=== PATIENT | male | born 1965 | race Caucasian/White ===

== ENCOUNTER → 2017-08-12 | Outpatient (CLI) | payer OTHER ==
--- NOTE | ~2017-08-12 | P ---
[facility] [place] [address] PROCEDURE REPORT Name: SILVERYESSY Tapan Room #: [facility] [id number] Admission: 08/12/17 Attend Phys: Antonio Prieto Discharge: Date of : 67 Report #: [id number] THIS REPORT FOR: //name// CC: Antonio Otero [facility] physician/PCP DATE OF SERVICE: 08/12/2017 PROCEDURE PERFORMED: Colonoscopy with biopsies. HISTORY OF PRESENT ILLNESS: The patient is a 52-year-old male who presents today for a routine screening colonoscopy, has never had a colonoscopy in the past. He has no symptoms, no family history of colon cancer. DESCRIPTION OF PROCEDURE: The risks and benefits of the procedure were explained to the patient, those risks including but not limited to bleeding, perforation, the risk of sedation. He understood these risks and gave informed consent. Sedation was given using propofol per anesthesia. Next, a digital rectal exam was initially performed, which was normal. Next, using a pediatric Fujinon colonoscope, the scope was placed in the patient's anus and advanced under direct vision to the cecum. The overall prep was excellent. In the cecum, there was a 4-mm sessile polyp. This was removed with cold forceps, otherwise normal. Ileocecal valve was normal. Ascending, transverse and descending colon were normal. In the sigmoid colon, a 4-mm sessile polyp noted, also removed with cold forceps, otherwise normal. The rectal mucosa was normal. On retroflexion, no abnormalities were noted. The scope was then withdrawn and the procedure terminated. The patient tolerated the procedure well. IMPRESSION: 1. Two small colonic polyps. 2. Otherwise, normal colonoscopy. RECOMMENDATIONS: 1. Await biopsy results. 2. If polyps are hyperplastic, repeat in 10 years; if adenomatous polyp, repeat in 5 years. Thank you for allowing me to participate in his care. <ELECTRONICALLY SIGNED> By: Antonio Otero MD 08/14/17 1151 [id number] [id number] Antonio Otero MD /nt
--- NOTE | ~2017-08-12 | S ---
[facility] [place] [address] SURGICAL PATH RPT PROCEDURE Name: AMISH GLASGOW Room #: REG [facility].#: [id number] Admission: 08/12/17 Date of : 67 Discharge: Report #: [id number] Path Case #: [id number] PATHOLOGY REPORT COLLECTION DATE: 08/12/2017 RECEIVED DATE: 08/12/2017 SUBMITTING PHYS: Dr. Antonio Otero OTHER PHYS: SPECIMEN(S) RECEIVED: A.Bx of polyp cecum B.Bx of polyp sigmoid colon * * * * * * * * * * * * FINAL DIAGNOSIS: A. Polyp, cecum, endoscopic biopsy: - Hyperplastic polyp. - Negative for dysplasia. B. Polyp, sigmoid colon, endoscopic biopsy: - Hyperplastic polyp. - Negative for dysplasia. (IUV; 08/13/17) PATHOLOGIST: Fabby aPulino M.D. REPORT ELECTRONICALLY SIGNED BY: Fabby Paulino M.D. DATE/TIME: 08/13/2017 12:50 * * * * * * * * * * * * GROSS PATHOLOGY: A. Received in formalin labeled "Amish [place] BX polyp cecum," are 2 segments of espinoza soft tissue measuring 1.4 x 0.2 x 0.2 cm in aggregate dimensions and ranging from 0.3 to 1.0 cm in maximum dimension. The specimen is submitted entirely in cassette A1. B. Received in formalin labeled "[place]ish [place] BX of polyp sigmoid colon," is a segment of espinoza soft tissue measuring 0.3 cm in maximum dimension. The specimen is submitted entirely in cassette B1. (TSD; 08/12/2017) CLINICAL HISTORY: Pre-OP DX: Screening Post-OP DX: Colon polyps INITIAL CPT CODE(S): A; 80108 B; 76582 [facility] [place] [address] SURGICAL PATH RPT PROCEDURE Name: AMISH GLASGOW Room #: REG JACKELIN [facility]#: [id number] Admission: 08/12/17 Date of : 67 Discharge: Report #: [id number] Path Case #: [id number] Professional services performed by [facility] [address], [place] [address] Technical services performed by [facility] at [address] [place] [address], [place] [address]. [facility] [address] [place] [address] PHONE: [phone] DIRECTOR: Gal Diaz M.D. * * * END OF REPORT * * *
== END ==
LOC: GI 07:46
DX: Z12.11 Encounter for screening for malignant neoplasm of colon (principal); D12.0 Benign neoplasm of cecum; D12.5 Benign neoplasm of sigmoid colon
CPT/HCPCS: 62110; 62900